=== PATIENT | female | born 1985 | race Caucasian/White ===

== ENCOUNTER 2019-02-01 08:33 | Emergency (ER) | payer BC ==
[2019-02-01 08:49] VITALS: BP 128/72
--- NOTE | 2019-02-01 09:05 | ED ---
Throat Pain/Nasal Congestion - HPI Summary HPI Summary: 33 yr old female with the complaint of sinus pressure, post nasal drip, coughing , ear pressure. Onset a week ago. She denies fever. She was also bitten by a tick yesterday right lower leg. It was not engorged and was on a brief time. - History of Current Complaint Chief Complaint: UCGeneralIllness Time Seen by Provider: 02/01/19 08:46 - Allergies/Home Medications Allergies/Adverse Reactions: Allergies Allergy/AdvReac Type Severity Reaction Status Date / Time latex Allergy Hives Verified 02/01/19 08:50 PMH/Surg Hx/FS Hx/Imm Hx Endocrine/Hematology History: Denies: Hx Diabetes, Hx Thyroid Disease Cardiovascular History: Denies: Hx Hypertension Respiratory History: Denies: Hx Asthma, Hx Chronic Obstructive Pulmonary Disease (COPD) GI History: Denies: Hx Ulcer - Surgical History Surgery Procedure, Year, and Place: CSECTION X 2, CYST REMOVED FROM VAGINAL AREA , E[facility]RE Infectious Disease History: No Infectious Disease History: Denies: Hx Hepatitis, Hx Human Immunodeficiency Virus (HIV), Traveled Outside the in Last 30 Days - Family History Known Family History: Positive: None - Social History Occupation: Employed Full-time Alcohol Use: Occasionally Substance Use Type: Reports: None Smoking Status (MU): Never Smoked Tobacco Review of Systems Constitutional: Negative Positive: Nasal Discharge, Other - sinus pain All Other Systems Reviewed And Are Negative: Yes Physical Exam Triage Information Reviewed: Yes Vital Signs On Initial Exam: Initial Vitals Temp Pulse Resp BP Pulse Ox 98.8 F 89 18 128/72 98 02/01/19 08:42 02/01/19 08:42 02/01/19 08:42 02/01/19 08:42 02/01/19 08:42 Vital Signs Reviewed: Yes Appearance: Positive: Well-Appearing Skin: Positive: Warm, Skin Color Reflects Adequate Perfusion, Other - very small tick bite candace lower right medial leg. No erythema. Head/Face: Positive: Normal Head/Face Inspection Eyes: Positive: EOMI, SHERLYN ENT: Positive: Pharynx normal, Nasal congestion, Nasal drainage, TM red - retracted bilateral, Sinus tenderness Neck: Positive: Nontender Respiratory/Lung Sounds: Positive: Clear to Auscultation, Breath Sounds Present Cardiovascular: Positive: RRR. Negative: Murmur Abdomen Description: Negative: Distended Musculoskeletal: Positive: Strength/ROM Intact Neurological: Positive: Sensory/Motor Intact, Alert, Oriented to Person Place, Time, CN Intact II-III, Normal Gait, Speech Normal Psychiatric: Positive: Normal Diagnostics - Vital Signs Vital Signs Temp Pulse Resp BP Pulse Ox 02/01/19 08:42 98.8 F 89 18 128/72 98 - Laboratory Lab Statement: Any lab studies that have been ordered have been reviewed, and results considered in the medical decision making process. EENT Course/Dx - Course Course Of Treatment: 33 yr old with sinusitis, and bilateral OM. Her tick bite candace barely noticable. WIll Rx with Augmentin. - Diagnoses Provider Diagnoses: Sinusitis, Bilateral otitis media, Tick bite Discharge - Sign-Out/Discharge Documenting (check all that apply): Patient Departure All imaging exams completed and their final reports reviewed: No Studies - Discharge Plan Condition: Good Disposition: HOME Prescriptions: Amoxicillin/Clavulanate TAB* [Augmentin TAB 875*] 875 mg PO BID #20 tab Patient Education Materials: Sinusitis (ED), Tick Bite (ED) Referrals: Dl Rascon MD [Primary Care Provider] - 4 Days - Billing Disposition and Condition Condition: GOOD Disposition: Home
== END 2019-02-01 09:12 | disposition home or self-care (01) ==
LOC: UCCORT 08:33
DX: J32.9 Chronic sinusitis, unspecified (principal); H66.93 Otitis media, unspecified, bilateral; S80.861A Insect bite (nonvenomous), right lower leg, initial encounter; R05 Cough; Z91.040 Latex allergy status; X58.XXXA Exposure to other specified factors, initial encounter
CPT/HCPCS: 99202; G0463